=== PATIENT | female | born 1960 | race American Indian/Alaskan Native ===

== ENCOUNTER 2017-09-13 16:41 | Emergency (ER) | payer OTHER ==
[2017-09-13 16:55] VITALS: BMI 31.1
[2017-09-13] MEDS ORDERED: Sodium Chloride 0.9% 1,000 ML IV ONE (17:11)
[2017-09-13 17:44] LABS: BASO # 0.1 K/uL (0.0-0.2); BASO % 0.8 % (0.0-2.0); EOS # 0.5 K/uL (0.0-0.7); EOS % 5.9 % (0.0-4.0); HEMATOCRIT 41.5 % (34.0-47.0); LYMPH # 3.2 K/uL (1.0-4.3); LYMPH % 41.6 % (20.0-40.0); MEAN CELL VOLUME 83.1 fL (81.0-99.0); MEAN CORPUSCULAR HEMOGLOBIN 27.2 pg (27.0-31.0); MEAN CORPUSCULAR HGB CONC 32.7 g/dL (33.0-37.0); MEAN PLATELET VOLUME 8.8 fL (7.2-11.7); MONO # 0.6 K/uL (0.0-0.8); MONO % 7.7 % (0.0-10.0); NRBC % 0.1 % (0.0-2.0); RED CELL DISTRIBUTION WIDTH 14.7 % (11.5-14.5); WHITE BLOOD COUNT 7.7 K/uL (4.8-10.8)
[2017-09-13 17:47] LABS: RBC URINE 3 /hpf (0-3); URINE BACTERIA RARE (<OCC); URINE BILIRUBIN NEGATIVE (NEGATIVE); URINE BLOOD 1+ (NEGATIVE); URINE COLOR Yellow (YELLOW); URINE GLUCOSE (UA) NORMAL (Normal); URINE KETONE NEGATIVE (NEGATIVE); URINE LEUKOCYTE ESTERASE NEG Leu/uL (Negative); URINE PROTEIN NEGATIVE (NEGATIVE); URINE UROBILINOGEN NORMAL mg/dL (0.2-1.0); WBC URINE 1 /hpf (0-5)
[2017-09-13 18:01] LABS: CHLORIDE 103 mmol/L (98-107); POTASSIUM 3.8 mmol/L (3.6-5.2); SODIUM 138 mmol/L (132-148)
[2017-09-13 18:03] LABS: AST/SGOT 24 U/L (14-36); BILIRUBIN,TOTAL 0.4 mg/dL (0.2-1.3); CARBON DIOXIDE 22 mmol/L (22-30); GFR AFRICAN-AMERICAN > 60
[2017-09-13 18:04] LABS: ALB/GLOB RATIO 1.2 (1.0-2.1); ALKALINE PHOSPHATASE 78 U/L (38-126); ALT/SGPT 32 U/L (9-52); BLOOD UREA NITROGEN 17 mg/dL (7-17); CALCIUM 8.6 mg/dl (8.6-10.4); GLUCOSE,RANDOM 112 mg/dL (65-105); TOTAL PROTEIN 8.2 g/dL (6.3-8.3)
[2017-09-13] MEDS ORDERED: Sodium Chloride 0.9% 1,000 ML ONE (18:06)
--- NOTE | 2017-09-13 18:19 | C.PDOC ---
History Of Present Illness 57 y/o female, with PMHx of HTN and diabetes (taking Metformin), presents to ED for evaluation of Chest Tightness, urinary frequency, and elevated blood sugar level. Also complaints of right shoulder pain that radiates to right side of chest for the past 5 days. No fall or injury. Otherwise, denies change in sensation, shortness of breath, cough, dysuria, hematuria, or fever. PMD: Dr. Ascencio Time Seen by Provider: 09/13/17 17:03 Chief Complaint (Nursing): Female Genitourinary History Per: Patient History/Exam Limitations: no limitations Onset/Duration Of Symptoms: Days Current Symptoms Are (Timing): Still Present Severity: Mild Quality Of Discomfort: Pressure, "Pain" Associated Symptoms: Urinary Symptoms Alleviating Factors: None Recent travel outside of the [place]: No Additional History Per: Patient Abnormal Vaginal Bleeding: No Past Medical History Reviewed: Historical Data, Nursing Documentation, Vital Signs Vital Signs: Last Vital Signs Temp 98.1 F 09/13/17 16:55 Pulse 103 H 09/13/17 16:55 Resp 18 09/13/17 16:55 BP 168/86 H 09/13/17 16:55 Pulse Ox 100 09/13/17 18:36 - Medical History PMH: Diabetes, HTN Denies: Chronic Kidney Disease Surgical History: No Surg Hx Family History: States: Unknown Family Hx - Social History Hx Alcohol Use: No Hx Substance Use: No - Immunization History Hx Tetanus Toxoid Vaccination: No Hx Influenza Vaccination: No Hx Pneumococcal Vaccination: No Review Of Systems Except As Marked, All Systems Reviewed And Found Negative. Constitutional: Negative for: Fever, Chills Cardiovascular: Positive for: Chest Pain. Negative for: Palpitations, Light Headedness Respiratory: Negative for: Cough, Shortness of Breath Genitourinary: Positive for: Frequency. Negative for: Dysuria, Hematuria, Vaginal Discharge Musculoskeletal: Positive for: Shoulder Pain (right), Leg Pain Skin: Negative for: Rash, Bruising Neurological: Negative for: Weakness, Numbness, Headache, Dizziness Physical Exam - Physical Exam Appears: Non-toxic, No Acute Distress Skin: Normal Color, Warm, Dry Head: Atraumatic, Normacephalic Eye(s): bilateral: Normal Inspection Oral Mucosa: Moist Neck: Normal ROM, Supple Chest: Symmetrical Cardiovascular: Rhythm Regular, No Murmur Respiratory: Normal Breath Sounds, No Rales, No Rhonchi, No Wheezing Gastrointestinal/Abdominal: Soft, No Tenderness Extremity: Normal ROM, No Pedal Edema Neurological/Psych: Oriented x3, Normal Speech Gait: Steady ED Course And Treatment - Laboratory Results Result Diagrams: 09/13/17 17:41 09/13/17 17:41 Lab Interpretation: Normal ECG: Interpreted By Me ECG Rhythm: Sinus Rhythm, Nonspecific Changes ECG Interpretation: No Acute Changes Rate From EC O2 Sat by Pulse Oximetry: 100 (RA) Pulse Ox Interpretation: Normal - Radiology CXR: Interpreted by Me CXR Interpretation: Yes: No Acute Disease Progress Note: Blood work, UA, EKG, CXR ordered and reviewed. Patient was given IV fluids. Reassessment Condition: Unchanged - Physician Consult Information Physician Contacted: Charmaine Ibarra Outcome Of Conversation: tele OBS Disposition Discussed With Dr.: Charmaine Ibarra Doctor Will See Patient In The: Hospital - Disposition Disposition: HOSPITALIZED Disposition Time: 18:35 Condition: STABLE - POA Present On Arrival: None - Clinical Impression Clinical Impression: Chest pain - PA / [employer] / Resident Statement MD/DO has reviewed & agrees with the documentation as recorded. - Scribe Statement The provider has reviewed the documentation as recorded by the Scribe Ashley Mullins All medical record entries made by the Liibe were at my direction and personally dictated by me. I have reviewed the chart and agree that the record accurately reflects my personal performance of the history, physical exam, medical decision making, and the department course for this patient. I have also personally directed, reviewed, and agree with the discharge instructions and disposition. Decision To Admit - Pt Status Changed To: Hospital Disposition Of: Observation - . Bed Request Type: Telemetry Admitting Physician: Charmaine Ibarra Patient Diagnosis: Chest pain
--- NOTE | 2017-09-13 23:20 | CP.PCM.HP ---
<Ernesto Dejesus - Last Filed: 09/13/17 23:08> History of Present Illness - History of Present Illness History of Present Illness: Medicine H/P CC: R. Shoulder Pain HPI: Patient is 57F with a PMH of DM and HTN who presents with a 5 day history of intermittent R. shoulder pain associated with chest tightness. ASA makes it better as well as taking deep breaths. The pain is located over the deltoid and radiates to near the corocoid process. Nothing makes the pain worse. Denies radiation. She had a prior episode 2 years ago that was evaluated with a stress test that was negative. Denies Fever, chills, N/V/D, diaphoresis, visual changes , speech changes, confusion, SEN, abdominal pain, rash or blood in urine. Patient complains of constipation, cough that is non productive, chest pain, leg pain in the L. calf described as stiffness. Also complaining of Polyuria/ polydipsia for 1 month. 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 Denies recent travel. ROS: * Const: denies WL * HEENT: Denies * Lungs: none * Heart: thinks she had a previous echo, no previous cath * GI: denies * Renal: denies * : polyuria * Breast: Denies * MSK: - falls, back pain, Rheumatoid arthritis; ambulates independently * Neuro - CVA, seizure, memory changes, weakness, numbness, MS, Alzheimer, Myasthenia gravis * Endo: - thyroid, adrenal; + DM * Skin: denies * Heme: denies easy bruising, anemia, leukemia, transfusion, prior clots * Onc: denies hx of cancer, immune problems * ID: denies history of MRSA, C.diff, HIV PMH: DM, HTN PSH: Csection 17 yrs ago FH: mom HTN/DM, Sister stroke SH: , not , lives with son, denies smoking, drinking, drugs Meds: * amlodipine * lopressor * zestril * prednisone * metformin * benadryl Allergies: KNA FULL CODE Present on Admission - Present on Admission Any Indicators Present on Admission: No Review of Systems - Review of Systems All systems: reviewed and no additional remarkable complaints except (per hpi) Past Patient History - Past Medical History & Family History Past Medical History?: Yes - Past Social History Smoking Status: Never Smoked - CARDIAC Hx Hypertension: Yes - PULMONARY Hx Respiratory Disorders: No - NEUROLOGICAL Hx Neurological Disorder: No - HEENT Hx HEENT Problems: Yes - RENAL Hx Chronic Kidney Disease: No - ENDOCRINE/METABOLIC Hx Endocrine Disorders: Yes Hx Diabetes Mellitus Type 2: Yes - HEMATOLOGICAL/ONCOLOGICAL Hx Blood Disorders: No - INTEGUMENTARY Hx Dermatological Problems: No - MUSCULOSKELETAL/RHEUMATOLOGICAL Hx Musculoskeletal Disorders: No - GASTROINTESTINAL Hx Gastrointestinal Disorders: No - GENITOURINARY/GYNECOLOGICAL Hx Genitourinary Disorders: No - PSYCHIATRIC Hx Substance Use: No - SURGICAL HISTORY Hx Surgeries: Yes Hx Section: Yes - ANESTHESIA Hx Anesthesia: Yes Hx Anesthesia Reactions: No Meds Allergies/Adverse Reactions: Allergies Allergy/AdvReac Type Severity Reaction Status Date / Time No Known Allergies Allergy Verified 09/13/17 16:54 Physical Exam - Constitutional Appears: Well, Non-toxic, No Acute Distress - Head Exam Head Exam: ATRAUMATIC, NORMAL INSPECTION, NORMOCEPHALIC - Eye Exam Eye Exam: EOMI, PERRL - ENT Exam ENT Exam: Mucous Membranes Moist - Neck Exam Neck exam: Positive for: Normal Inspection - Respiratory Exam Respiratory Exam: Chest Wall Tenderness, Clear to Auscultation Bilateral, NORMAL BREATHING PATTERN - Cardiovascular Exam Cardiovascular Exam: REGULAR RHYTHM - GI/Abdominal Exam GI & Abdominal Exam: Normal Bowel Sounds, Soft. absent: Distended, Tenderness - Extremities Exam Additional comments: tenderness over the deltoid/coracoid - Neurological Exam Neurological exam: Alert, CN II-XII Intact, Oriented x3 - Psychiatric Exam Psychiatric exam: Normal Affect, Normal Mood - Skin Skin Exam: Dry, Intact, Normal Color, Warm Results - Vital Signs Recent Vital Signs: Last Vital Signs Temp 98.1 F 09/13/17 16:55 Pulse 103 H 09/13/17 16:55 Resp 18 09/13/17 16:55 BP 168/86 H 09/13/17 16:55 Pulse Ox 100 09/13/17 18:44 - Labs Result Diagrams: 09/13/17 17:41 09/13/17 17:41 Labs: Laboratory Results - last 24 hr 09/13/17 09/13/17 09/13/17 17:22 17:41 17:41 WBC 7.7 D RBC 4.99 Hgb 13.6 Hct 41.5 MCV 83.1 MCH 27.2 MCHC 32.7 L RDW 14.7 H Plt Count 390 MPV 8.8 Neut % (Auto) 44.0 L Lymph % (Auto) 41.6 H [place] % (Auto) 7.7 Eos % (Auto) 5.9 H Baso % (Auto) 0.8 Neut # 3.4 Lymph # 3.2 [place] # 0.6 Eos # 0.5 Baso # 0.1 Sodium Potassium Chloride Carbon Dioxide Anion Gap BUN Creatinine Est GFR ( Amer) Est GFR (Non-Af Amer) POC Glucose (mg/dL) 131 H Random Glucose Calcium Total Bilirubin AST ALT Alkaline Phosphatase Troponin I Total Protein Albumin Globulin Albumin/Globulin Ratio Lipase Urine Color Yellow Urine Clarity Clear Urine pH 7.0 Ur Specific [place] 1.017 Urine Protein Negative Urine Glucose (UA) Normal Urine Ketones Negative Urine Blood 1+ H Urine Nitrate Negative Urine Bilirubin Negative Urine Urobilinogen Normal Ur Leukocyte Esterase Neg Urine WBC (Auto) 1 Urine RBC (Auto) 3 Ur Squamous Epith Cells 2 Urine Bacteria Rare 09/13/17 17:41 WBC RBC Hgb Hct MCV MCH MCHC RDW Plt Count MPV Neut % (Auto) Lymph % (Auto) [place] % (Auto) Eos % (Auto) Baso % (Auto) Neut # Lymph # [place] # Eos # Baso # Sodium 138 Potassium 3.8 Chloride 103 Carbon Dioxide 22 Anion Gap 17 BUN 17 Creatinine 0.8 Est GFR ( Amer) > 60 Est GFR (Non-Af Amer) > 60 POC Glucose (mg/dL) Random Glucose 112 H Calcium 8.6 Total Bilirubin 0.4 AST 24 ALT 32 Alkaline Phosphatase 78 Troponin I < 0.0120 Total Protein 8.2 Albumin 4.5 Globulin 3.7 Albumin/Globulin Ratio 1.2 Lipase 81 Urine Color Urine Clarity Urine pH Ur Specific [place] Urine Protein Urine Glucose (UA) Urine Ketones Urine Blood Urine Nitrate Urine Bilirubin Urine Urobilinogen Ur Leukocyte Esterase Urine WBC (Auto) Urine RBC (Auto) Ur Squamous Epith Cells Urine Bacteria Assessment & Plan - Assessment and Plan (Free Text) Assessment: R. Shoulder Pain * assoc with chest tightness * GARY * negative x1 * F/U * F/U LE Doppler * Lipid Panel * TG 147 * Cholesterol 164 * LDL - F/U * HDL 68 DM * accuchecks * ISS High * Metformin held * A1C - F/U HTN * Norvasc 10 PO QD * Zestril 10 PO QD * Lopressor 50 PO BID PPx * SCD * Ambulate * Zofran * Pepcid * Colace <Zeyad Obregon - Last Filed: 09/14/17 06:24> Results - Vital Signs Recent Vital Signs: Last Vital Signs Temp 98.1 F 09/13/17 16:55 Pulse 65 09/14/17 05:01 Resp 13 09/14/17 05:01 BP 127/72 09/14/17 05:01 Pulse Ox 97 09/14/17 05:01 - Labs Result Diagrams: 09/14/17 04:53 09/14/17 04:19 Labs: Laboratory Results - last 24 hr 09/13/17 09/13/17 09/13/17 17:22 17:41 17:41 WBC 7.7 D RBC 4.99 Hgb 13.6 Hct 41.5 MCV 83.1 MCH 27.2 MCHC 32.7 L RDW 14.7 H Plt Count 390 MPV 8.8 Neut % (Auto) 44.0 L Lymph % (Auto) 41.6 H [place] % (Auto) 7.7 Eos % (Auto) 5.9 H Baso % (Auto) 0.8 Neut # 3.4 Lymph # 3.2 [place] # 0.6 Eos # 0.5 Baso # 0.1 Sodium Potassium Chloride Carbon Dioxide Anion Gap BUN Creatinine Est GFR ( Amer) Est GFR (Non-Af Amer) POC Glucose (mg/dL) 131 H Random Glucose Calcium Total Bilirubin AST ALT Alkaline Phosphatase Total Creatine Kinase CK-MB (Mass) Troponin I Troponin I, Quant Total Protein Albumin Globulin Albumin/Globulin Ratio Triglycerides Cholesterol LDL Cholesterol Direct HDL Cholesterol Lipase Urine Color Yellow Urine Clarity Clear Urine pH 7.0 Ur Specific [place] 1.017 Urine Protein Negative Urine Glucose (UA) Normal Urine Ketones Negative Urine Blood 1+ H Urine Nitrate Negative Urine Bilirubin Negative Urine Urobilinogen Normal Ur Leukocyte Esterase Neg Urine WBC (Auto) 1 Urine RBC (Auto) 3 Ur Squamous Epith Cells 2 Urine Bacteria Rare Influenza Typ A,B (EIA) 09/13/17 09/13/17 09/13/17 17:41 23:06 23:08 WBC RBC Hgb Hct MCV MCH MCHC RDW Plt Count MPV Neut % (Auto) Lymph % (Auto) [place] % (Auto) Eos % (Auto) Baso % (Auto) Neut # Lymph # [place] # Eos # Baso # Sodium 138 Potassium 3.8 Chloride 103 Carbon Dioxide 22 Anion Gap 17 BUN 17 Creatinine 0.8 Est GFR ( Amer) > 60 Est GFR (Non-Af Amer) > 60 POC Glucose (mg/dL) Random Glucose 112 H Calcium 8.6 Total Bilirubin 0.4 AST 24 ALT 32 Alkaline Phosphatase 78 Total Creatine Kinase 170 H CK-MB (Mass) 2.14 Troponin I < 0.0120 Troponin I, Quant < 0.0120 Total Protein 8.2 Albumin 4.5 Globulin 3.7 Albumin/Globulin Ratio 1.2 Triglycerides 147 Cholesterol 164 LDL Cholesterol Direct 42 HDL Cholesterol 68 Lipase 81 Urine Color Urine Clarity Urine pH Ur Specific [place] Urine Protein Urine Glucose (UA) Urine Ketones Urine Blood Urine Nitrate Urine Bilirubin Urine Urobilinogen Ur Leukocyte Esterase Urine WBC (Auto) Urine RBC (Auto) Ur Squamous Epith Cells Urine Bacteria Influenza Typ A,B (EIA) Negative for flu a/b 09/14/17 09/14/17 09/14/17 01:04 04:19 04:53 WBC 6.2 RBC 4.84 Hgb 13.0 Hct 39.7 MCV 82.0 MCH 26.8 L MCHC 32.7 L RDW 14.7 H Plt Count 358 MPV 8.9 Neut % (Auto) 33.9 L Lymph % (Auto) 50.5 H [place] % (Auto) 9.2 Eos % (Auto) 5.9 H Baso % (Auto) 0.5 Neut # 2.1 Lymph # 3.1 [place] # 0.6 Eos # 0.4 Baso # 0.0 Sodium 135 Potassium 3.4 L Chloride 103 Carbon Dioxide 22 Anion Gap 13 BUN 16 Creatinine 0.7 Est GFR ( Amer) > 60 Est GFR (Non-Af Amer) > 60 POC Glucose (mg/dL) 161 H Random Glucose 80 Calcium 7.9 L Total Bilirubin 0.6 AST 20 ALT 24 Alkaline Phosphatase 78 Total Creatine Kinase 133 CK-MB (Mass) 1.65 Troponin I Troponin I, Quant < 0.0120 Total Protein 6.5 Albumin 4.1 Globulin 2.4 Albumin/Globulin Ratio 1.7 Triglycerides Cholesterol LDL Cholesterol Direct HDL Cholesterol Lipase Urine Color Urine Clarity Urine pH Ur Specific [place] Urine Protein Urine Glucose (UA) Urine Ketones Urine Blood Urine Nitrate Urine Bilirubin Urine Urobilinogen Ur Leukocyte Esterase Urine WBC (Auto) Urine RBC (Auto) Ur Squamous Epith Cells Urine Bacteria Influenza Typ A,B (EIA) Assessment & Plan - Date & Time Date: 09/14/17 (I have seen and examined the patient. I agree with the findings and plan of care as documented by Dr. Dejesus. Patient with chest pain. History of diabetes. Aspirin and Statin. ROMIx3 with EKG. Observe on tele. Accuchecks and NISS. Monitor for acute changes.) Time: 06:22 Attending/Attestation - Attestation I have personally seen and examined this patient.: Yes I have fully participated in the care of the patient.: Yes I have reviewed all pertinent clinical information: Yes
[2017-09-13 23:21] LABS: CHOLESTEROL 164 mg/dL (0-199)
[2017-09-14 04:32] LABS: CHLORIDE 103 mmol/L (98-107); POTASSIUM 3.4 mmol/L (3.6-5.2); SODIUM 135 mmol/L (132-148)
[2017-09-14 04:34] LABS: GFR AFRICAN-AMERICAN > 60
[2017-09-14 04:35] LABS: ALB/GLOB RATIO 1.7 (1.0-2.1); ALKALINE PHOSPHATASE 78 U/L (38-126); ALT/SGPT 24 U/L (9-52); AST/SGOT 20 U/L (14-36); BILIRUBIN,TOTAL 0.6 mg/dL (0.2-1.3); BLOOD UREA NITROGEN 16 mg/dL (7-17); CALCIUM 7.9 mg/dl (8.6-10.4); CARBON DIOXIDE 22 mmol/L (22-30); GLUCOSE,RANDOM 80 mg/dL (65-105); TOTAL PROTEIN 6.5 g/dL (6.3-8.3)
[2017-09-14 04:55] LABS: BASO % 0.5 % (0.0-2.0); EOS # 0.4 K/uL (0.0-0.7); EOS % 5.9 % (0.0-4.0); HEMATOCRIT 39.7 % (34.0-47.0); LYMPH # 3.1 K/uL (1.0-4.3); LYMPH % 50.5 % (20.0-40.0); MEAN CORPUSCULAR HEMOGLOBIN 26.8 pg (27.0-31.0); MEAN CORPUSCULAR HGB CONC 32.7 g/dL (33.0-37.0); MEAN PLATELET VOLUME 8.9 fL (7.2-11.7); MONO # 0.6 K/uL (0.0-0.8); MONO % 9.2 % (0.0-10.0); RED CELL DISTRIBUTION WIDTH 14.7 % (11.5-14.5); WHITE BLOOD COUNT 6.2 K/uL (4.8-10.8)
[2017-09-14] MEDS ORDERED: (Novolin R) Insulin Human Regular 100 units/ml vial SC SCH (07:30)
--- NOTE | 2017-09-14 08:08 | RAD ---
Chest x-ray two views History: Shortness of breath. Comparison: 12/23/2016 Findings: No focal infiltrate or effusion. Right hilar prominence. Heart size within normal limits. Degenerative changes in the spine. Impression: No focal infiltrate or effusion.
[2017-09-14 08:51] VITALS: RESP 18
[2017-09-14] MEDS ORDERED: Potassium Chloride 20 mEq ER Tab PO ONE ×2 (10:00→10:34)
[2017-09-14] MEDS ORDERED: Pneumoc 13 Val Conjugate Vaccine Inj IM ONE (11:05)
[2017-09-14] MEDS ORDERED: Influenza Vaccine 60 mcg/0.5 mL SYR (4YR UP) IM ONE (11:05)
[2017-09-14 11:54] VITALS: BP 110/73; PULSE 75; TEMP 98.5; O2SAT 97
--- NOTE | 2017-09-14 12:28 | CP.PCM.DIS ---
Provider - Provider Primary care physician: [facility] Time Spent in preparation of Discharge (in minutes): 25 Diagnosis - Discharge Diagnosis (1) Chest pain Status: Resolved Comment: GARY X3: negative. EKG: NSR (09/03). EKG: NSR with sinus arrhytmia ( 09/04). Aspirin 81mg PO daily. Lopressor 50mg PO BID. Lisinopril 10mg PO daily. Held statin given hx of diabetes; Lipid panel: within normal limits. Patient goes to [facility], recommended to follow-up for outpatient stress test. (2) Hypokalemia Status: Acute Comment: replete (3) History of diabetes mellitus Status: Acute Comment: 01/20/17 Hgba1c: 6.5. Educated dietary and lifestyle modifications. Sugars: 130-160s. Patient does not take her sugars daily at home and taking in too much fruit per meal per discussion. Aspirin 81mg PO daily prophylactic. Lisinopril 10mg Po daily for renoprotection. Patient provided Glucometer, test strips, lancets upon discharge. Instructed to take sugars 4 x day (3 times prior meals, once before going to bed) (4) History of hypertension Status: Chronic Comment: Lopressor 50mg PO BID. Lisinopril 10mg PO daily. Norvasc 10mg PO daily. Blood pressure controlled (5) Flu vaccine need Status: Acute Comment: Patient requested and received flu vaccine prior to discharge (6) AC (acromioclavicular) arthritis Status: Chronic Comment: tenderness over AC joint. Patient is on Motring 400mg PO Q 6 PRN pain Hospital Course - Lab Results Lab Results: Most Recent Lab Values WBC 6.2 K/uL (4.8-10.8) 09/14/17 04:53 RBC 4.84 Mil/uL (3.80-5.20) 09/14/17 04:53 Hgb 13.0 g/dL (11.0-16.0) 09/14/17 04:53 Hct 39.7 % (34.0-47.0) 09/14/17 04:53 MCV 82.0 fL (81.0-99.0) 09/14/17 04:53 MCH 26.8 pg (27.0-31.0) L 09/14/17 04:53 MCHC 32.7 g/dL (33.0-37.0) L 09/14/17 04:53 RDW 14.7 % (11.5-14.5) H 09/14/17 04:53 Plt Count 358 K/uL (130-400) 09/14/17 04:53 MPV 8.9 fL (7.2-11.7) 09/14/17 04:53 Neut % (Auto) 33.9 % (50.0-75.0) L 09/14/17 04:53 Lymph % (Auto) 50.5 % (20.0-40.0) H 09/14/17 04:53 [place] % (Auto) 9.2 % (0.0-10.0) 09/14/17 04:53 Eos % (Auto) 5.9 % (0.0-4.0) H 09/14/17 04:53 Baso % (Auto) 0.5 % (0.0-2.0) 09/14/17 04:53 Neut # 2.1 K/uL (1.8-7.0) 09/14/17 04:53 Lymph # 3.1 K/uL (1.0-4.3) 09/14/17 04:53 [place] # 0.6 K/uL (0.0-0.8) 09/14/17 04:53 Eos # 0.4 K/uL (0.0-0.7) 09/14/17 04:53 Baso # 0.0 K/uL (0.0-0.2) 09/14/17 04:53 Sodium 135 mmol/L (132-148) 09/14/17 04:19 Potassium 3.4 mmol/L (3.6-5.2) L 09/14/17 04:19 Chloride 103 mmol/L (98-107) 09/14/17 04:19 Carbon Dioxide 22 mmol/L (22-30) 09/14/17 04:19 Anion Gap 13 (10-20) 09/14/17 04:19 BUN 16 mg/dL (7-17) 09/14/17 04:19 Creatinine 0.7 mg/dL (0.7-1.2) 09/14/17 04:19 Est GFR ( Amer) > 60 09/14/17 04:19 Est GFR (Non-Af Amer) > 60 09/14/17 04:19 POC Glucose (mg/dL) 133 mg/dL (65-110) H 09/14/17 09:00 Random Glucose 80 mg/dL (65-105) 09/14/17 04:19 Calcium 7.9 mg/dl (8.6-10.4) L 09/14/17 04:19 Total Bilirubin 0.6 mg/dL (0.2-1.3) 09/14/17 04:19 AST 20 U/L (14-36) 09/14/17 04:19 ALT 24 U/L (9-52) 09/14/17 04:19 Alkaline Phosphatase 78 U/L (38-126) 09/14/17 04:19 Total Creatine Kinase 133 U/L (30-135) 09/14/17 04:19 CK-MB (Mass) 1.65 ng/mL (0.0-3.38) 09/14/17 04:19 Troponin I < 0.0120 ng/mL (0.00-0.120) 09/13/17 17:41 Troponin I, Quant < 0.0120 ng/mL (0.00-0.120) 09/14/17 04:19 Total Protein 6.5 g/dL (6.3-8.3) 09/14/17 04:19 Albumin 4.1 g/dL (3.5-5.0) 09/14/17 04:19 Globulin 2.4 gm/dL (2.2-3.9) 09/14/17 04:19 Albumin/Globulin Ratio 1.7 (1.0-2.1) 09/14/17 04:19 Triglycerides 147 mg/dL (0-149) 09/13/17 23:06 Cholesterol 164 mg/dL (0-199) 09/13/17 23:06 LDL Cholesterol Direct 42 mg/dL (0-129) 09/13/17 23:06 HDL Cholesterol 68 mg/dL (30-70) 09/13/17 23:06 Lipase 81 U/L (23-300) 09/13/17 17:41 Urine Color Yellow (YELLOW) 09/13/17 17:41 Urine Clarity Clear (Clear) 09/13/17 17:41 Urine pH 7.0 (5.0-8.0) 09/13/17 17:41 Ur Specific [place] 1.017 (1.003-1.030) 09/13/17 17:41 Urine Protein Negative mg/dL (NEGATIVE) 09/13/17 17:41 Urine Glucose (UA) Normal mg/dL (Normal) 09/13/17 17:41 Urine Ketones Negative mg/dL (NEGATIVE) 09/13/17 17:41 Urine Blood 1+ (NEGATIVE) H 09/13/17 17:41 Urine Nitrate Negative (NEGATIVE) 09/13/17 17:41 Urine Bilirubin Negative (NEGATIVE) 09/13/17 17:41 Urine Urobilinogen Normal mg/dL (0.2-1.0) 09/13/17 17:41 Ur Leukocyte Esterase Neg Maci/uL (Negative) 09/13/17 17:41 Urine WBC (Auto) 1 /hpf (0-5) 09/13/17 17:41 Urine RBC (Auto) 3 /hpf (0-3) 09/13/17 17:41 Ur Squamous Epith Cells 2 /hpf (0-5) 09/13/17 17:41 Urine Bacteria Rare (<OCC) 09/13/17 17:41 Influenza Typ A,B (EIA) Negative for flu a/b (NEGATIVE) 09/13/17 23:08 - Hospital Course Hospital Course: Per H&P, "CC: R. Shoulder Pain HPI: Patient is 57F with a PMH of DM and HTN who presents with a 5 day history of intermittent R. shoulder pain associated with chest tightness. ASA makes it better as well as taking deep breaths. The pain is located over the deltoid and radiates to near the corocoid process. Nothing makes the pain worse. Denies radiation. She had a prior episode 2 years ago that was evaluated with a stress test that was negative. Denies Fever, chills, N/V/D, diaphoresis, visual changes , speech changes, confusion, SEN, abdominal pain, rash or blood in urine. Patient complains of constipation, cough that is non productive, chest pain, leg pain in the L. calf described as stiffness. Also complaining of Polyuria/ polydipsia for 1 month. 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 Denies recent travel. ROS: * Const: denies WL * HEENT: Denies * Lungs: none * Heart: thinks she had a previous echo, no previous cath * GI: denies * Renal: denies * : polyuria * Breast: Denies * MSK: - falls, back pain, Rheumatoid arthritis; ambulates independently * Neuro - CVA, seizure, memory changes, weakness, numbness, MS, Alzheimer, Myasthenia gravis * Endo: - thyroid, adrenal; + DM * Skin: denies * Heme: denies easy bruising, anemia, leukemia, transfusion, prior clots * Onc: denies hx of cancer, immune problems * ID: denies history of MRSA, C.diff, HIV PMH: DM, HTN PSH: Csection 17 yrs ago FH: mom HTN/DM, Sister stroke SH: , not , lives with son, denies smoking, drinking, drugs Meds: * amlodipine * lopressor * zestril * prednisone * metformin * benadryl Allergies: KNA FULL CODE" Patient seen in the emergency room awaiting telemetry bed. Patient seen at bedside. Chest pain has resolved. GARY X3 negative. EKG and repeat EKG are NSR. Lipid panel; within normal. Patient denies acute compliants. Patient is medically stable for discharge. Patient reports she has had a stress test normal in the past; unable to review it. Patient request for flu vaccine prior to discharge. Patient recommended to follow-up in the clinic ([phone]) will need cardiology for screening for outpatient stress test in light of diabetes and hypertension and for diabetes management. Instructed to create blood sugar diary and take sugars pre-meals and once before dinner. New Prescriptions: 1) Glucometer 2) Test strips 3) Lancets Old prescription to resume Norvasc 5mg PO daily Lopressor 50mg PO BID Lisinopril 10mg PO daily Aspirin 81mg PO daily Patient is no longer taking Benadryl and Predisone. This is a summary of patient's hospitalization. Please see EMR for full details. - Date & Time of H&P Date of H&P: 09/13/17 Time of H&P: 23:08 Discharge Exam - Head Exam Head Exam: ATRAUMATIC, NORMAL INSPECTION, NORMOCEPHALIC - Eye Exam Eye Exam: EOMI - ENT Exam ENT Exam: Mucous Membranes Moist - Respiratory Exam Respiratory Exam: Clear to PA & Lateral, NORMAL BREATHING PATTERN. absent: Rales, Rhonchi - Cardiovascular Exam Cardiovascular Exam: REGULAR RHYTHM, +S1, +S2 - GI/Abdominal Exam GI & Abdominal Exam: Normal Bowel Sounds, Soft. absent: Distended, Firm, Guarding, Rebound, Rigid, Tenderness - Extremities Exam Extremities exam: pedal pulses present Additional comments: point tenderness over AC joint right upper extremity Passive range of motion intact bilateral upper and lower extremities No edema appreciated upon lower extremities - Neurological Exam Neurological exam: Alert, Oriented x3 - Psychiatric Exam Psychiatric exam: Normal Affect, Normal Mood - Skin Skin Exam: Dry, Intact, Normal Color, Warm Discharge Plan - Follow Up Plan Condition: STABLE Disposition: HOSPITALIZED Instructions: Angina (GEN), Chest Pain (DC), Diabetes Mellitus Type 2 in Adults (DC), Diabetes Mellitus Type 2 in Adults (GEN) Additional Instructions: Patient to be discharged home per Dr. Ayers. Patient will return to the ED if her symptoms of chest pain or discomfort return worsen. Patient will all her previous home medication of Lopressor, Zestril, and Norvasc as previously prescribed. She will also continue with her Metformin twice a day. She will need to take Aspirin 81mg everyday which she can buy over the counter. Patient will also follow up at [facility] for post hospital admission care, primary care, and cardiology referral. Patient needs to take her BS twice a day and keep a log of them and take them with her to her next appointment at [facility]. She also needs referral for yearly diabetic eye exam and foot exam. She also needs annual sustainability engineer exam and mammogram as well. Referrals: [facility] at [facility] [Outside]
--- NOTE | 2017-09-15 10:33 | CARD ---
APPROVED REPORT EKG Measurement Heart [id number] MS 140P41 [id number] <Conclusion> Normal sinus rhythm Nonspecific T wave abnormality Abnormal ECG
--- NOTE | 2017-09-15 22:24 | CARD ---
APPROVED REPORT EKG Measurement Heart [id number] [place] 130P21 [id number] <Conclusion> Normal sinus rhythm with sinus arrhythmia Normal ECG
== END 2017-09-14 11:50 | disposition home or self-care (01) ==
LOC: C.ER 16:41 → UNDOADMOB 18:29 → C.9E 18:29 → C.ER 09-14 11:50
DX: R07.9 Chest pain, unspecified (principal); E11.9 Type 2 diabetes mellitus without complications; I10 Essential (primary) hypertension; Z79.84 Long term (current) use of oral hypoglycemic drugs; Z23 Encounter for immunization
CPT/HCPCS: 71020; 80053; 80061; 81001; 82948; 83036; 83690; 84484; 85025; 87086; 87804; 90471; 90674; 93005; 96360; 99285; J7040

== ENCOUNTER 2018-01-03 22:36 | Emergency (ER) | payer SELFPAY ==
[2018-01-03 22:36] VITALS: BMI 31.1
[2018-01-03 22:57] VITALS: BP 157/83; PULSE 79; RESP 18; TEMP 97.9; O2SAT 99
--- NOTE | 2018-01-03 23:22 | C.PDOC ---
History Of Present Illness 57 year old female with a Hx of HTN and diabetes presents to the ER after noticing her blood pressure was elevated at home. Patient reports she ran out of her HTN medication and has been unable to get a refill. Here in the ER patient's blood pressure is within normal limits. Denies chest pain, SOB, numbness, weakness, vision changes, nausea, or vomiting. Time Seen by Provider: 01/03/18 22:59 Chief Complaint (Nursing): High Blood Pressure History Per: Patient History/Exam Limitations: no limitations Onset/Duration Of Symptoms: Hrs Current Symptoms Are (Timing): Still Present Associated Symptoms: denies: Chest Pain, Dyspnea, Dizziness, Blurred Vision, Focal Weakness, Headache Quality Of Symptoms: Asymptomatic Exacerbating Factor(s): Pos: Recently Missed Doses Of Medication Recent travel outside of the [place]: No Past Medical History Reviewed: Historical Data, Nursing Documentation, Vital Signs Vital Signs: Last Vital Signs Temp 97.9 F 01/03/18 22:57 Pulse 79 01/03/18 22:57 Resp 18 01/03/18 22:57 BP 157/83 H 01/03/18 22:57 Pulse Ox 99 01/05/18 05:26 - Medical History PMH: Diabetes, HTN Family History: States: Unknown Family Hx - Social History Hx Alcohol Use: No Hx Substance Use: No - Immunization History Hx Tetanus Toxoid Vaccination: No Hx Influenza Vaccination: No Hx Pneumococcal Vaccination: No Review Of Systems Constitutional: Negative for: Fever, Chills Cardiovascular: Negative for: Chest Pain, Palpitations Respiratory: Negative for: Shortness of Breath Gastrointestinal: Negative for: Nausea, Vomiting Physical Exam - Physical Exam Appears: Non-toxic, No Acute Distress Skin: Normal Color, Warm, Dry, No Rash Head: Atraumatic, Normacephalic Eye(s): bilateral: Normal Inspection, PERRL, EOMI Oral Mucosa: Moist Neck: Normal ROM, Supple Chest: Symmetrical, No Tenderness Cardiovascular: Rhythm Regular, No Friction Rub, No Murmur Respiratory: Normal Breath Sounds, No Rales, No Rhonchi, No Wheezing Gastrointestinal/Abdominal: Soft, No Tenderness Back: Normal Inspection, No CVA Tenderness Extremity: Normal ROM, No Swelling Neurological/Psych: Oriented x3, Normal Speech, Normal Motor Gait: Steady ED Course And Treatment O2 Sat by Pulse Oximetry: 99 (Room air) Pulse Ox Interpretation: Normal Medical Decision Making Medical Decision Making: Pt states that she received Rx today and does not need a refill. Patient is resting comfortably in the ER in no acute distress, vitals are stable , blood pressure is within normal limits. Patient reassured and advised to follow up with PMD or return if symptoms worsen. Patient understands and agrees with plan. Disposition - Disposition Referrals: Mariola Ascencio MD [Staff Provider] - Disposition: HOME/ ROUTINE Disposition Time: 23:21 Condition: GOOD Additional Instructions: take medications as prescribed. Follow up with the medical doctor for repeat BP within 1-2 days without fail. Return if worsened. Instructions: High Blood Pressure in Adults Forms: [facility] [facility] (Malay) - Clinical Impression Clinical Impression: Abnormal blood pressure, History of hypertension - PA / SENIOR INFORMATION SYSTEMS ARCHITECT / Resident Statement MD/DO has reviewed & agrees with the documentation as recorded. - Scribe Statement The provider has reviewed the documentation as recorded by the Scribe Ottoniel Covarrubias All medical record entries made by the Scribe were at my direction and personally dictated by me. I have reviewed the chart and agree that the record accurately reflects my personal performance of the history, physical exam, medical decision making, and the department course for this patient. I have also personally directed, reviewed, and agree with the discharge instructions and disposition.
== END 2018-01-03 23:29 | disposition home or self-care (01) ==
LOC: C.ER 22:36
DX: I10 Essential (primary) hypertension (principal)

== ENCOUNTER 2018-04-10 20:30 | Emergency (ER) | payer OTHER ==
[2018-04-10 20:30] VITALS: BMI 31.8
[2018-04-10 20:43] VITALS: O2SAT 97
[2018-04-10 21:17] LABS: BASO # 0.1 K/uL (0.0-0.2); EOS # 0.1 K/uL (0.0-0.7); EOS % 2.2 % (0.0-4.0); HEMOGLOBIN 13.5 g/dL (11.0-16.0); LYMPH # 2.1 K/uL (1.0-4.3); LYMPH % 32.4 % (20.0-40.0); MEAN CELL VOLUME 82.7 fL (81.0-99.0); MEAN CORPUSCULAR HEMOGLOBIN 27.6 pg (27.0-31.0); MEAN CORPUSCULAR HGB CONC 33.3 g/dL (33.0-37.0); MEAN PLATELET VOLUME 8.7 fL (7.2-11.7); MONO # 0.5 K/uL (0.0-0.8); MONO % 7.2 % (0.0-10.0); NEUT # 3.8 K/uL (1.8-7.0); NEUT % 57.2 % (50.0-75.0); NRBC % 0.1 % (0.0-2.0); RBC 4.91 Mil/uL (3.80-5.20); RED CELL DISTRIBUTION WIDTH 15.3 % (11.5-14.5); WHITE BLOOD COUNT 6.6 K/uL (4.8-10.8)
[2018-04-10 21:21] LABS: URINE BACTERIA RARE (<OCC); URINE BILIRUBIN NEGATIVE (NEGATIVE); URINE BLOOD NEGATIVE (NEGATIVE); URINE CLARITY Clear (Clear); URINE COLOR Colorless (YELLOW); URINE GLUCOSE (UA) 1+ mg/dL (Normal); URINE LEUKOCYTE ESTERASE NEG Leu/uL (Negative); URINE PROTEIN NEGATIVE (NEGATIVE); URINE UROBILINOGEN NORMAL mg/dL (0.2-1.0)
[2018-04-10 21:33] LABS: ALB/GLOB RATIO 1.2 (1.0-2.1); ALBUMIN 4.4 g/dL (3.5-5.0); CALCIUM 9.5 mg/dl (8.6-10.4); GFR AFRICAN-AMERICAN > 60; GFR NON-AFRICAN AMERICAN > 60
[2018-04-10 21:35] LABS: ALT/SGPT 24 U/L (9-52); AST/SGOT 31 U/L (14-36); BLOOD UREA NITROGEN 19 mg/dL (7-17)
[2018-04-10] MEDS ORDERED: Sodium Chloride 0.9% 1,000 ML IV STA (21:36)
[2018-04-10] MEDS ORDERED: Sodium Chloride 0.9% 1,000 ML ONE (22:09)
--- NOTE | 2018-04-10 22:12 | CT ---
EXAM: CT Head Without Intravenous Contrast CLINICAL HISTORY: 57 years old, female; Signs and symptoms; Dizziness; Additional info: Dizziness, headache TECHNIQUE: Axial computed tomography images of the head/brain without intravenous contrast. All CT scans at this facility use one or more dose reduction techniques, viz.: automated exposure control; ma/kV adjustment per patient size (including targeted exams where dose is matched to indication; i.e. head); or iterative reconstruction technique. COMPARISON: No relevant prior studies available. FINDINGS: Brain: No hemorrhage. No significant white matter disease. No edema. Ventricles: No hydrocephalus. Bones: Skull is intact. Sinuses: No acute sinusitis. Mastoid air cells: No mastoid effusion. IMPRESSION: No CT evidence of acute intracranial abnormality.
--- NOTE | 2018-04-10 22:38 | C.PDOC ---
Time Seen by Provider: 04/10/18 20:51 Chief Complaint (Nursing): Dizziness/Lightheaded History Per: Patient Onset/Duration Of Symptoms: Days, Intermittent Episodes Current Symptoms Are (Timing): Still Present Associated Symptoms Preceding Syncopal Episode: Vertigo Worse With Change In Head Position Fall Associated With With Symptoms: No Severity: Moderate Additional History Per: Prior Records - Symptoms Of CVA Recent Head Trauma: No Past Medical History Reviewed: Historical Data, Nursing Documentation, Vital Signs Vital Signs: Last Vital Signs Temp 97.9 F 04/10/18 20:40 Pulse 115 H 04/10/18 20:40 Resp 18 04/10/18 20:40 BP 172/92 H 04/10/18 20:40 Pulse Ox 97 04/10/18 20:40 - Medical History PMH: Diabetes, HTN Family History: States: Unknown Family Hx - Social History Hx Alcohol Use: No Hx Substance Use: No - Immunization History Hx Tetanus Toxoid Vaccination: No Hx Influenza Vaccination: No Hx Pneumococcal Vaccination: No Review Of Systems Except As Marked, All Systems Reviewed And Found Negative. Constitutional: Negative for: Fever Eyes: Negative for: Vision Change ENT: Positive for: Ear Pain (right), Nose Congestion (sneezing). Negative for: Ear Discharge Cardiovascular: Negative for: Chest Pain Respiratory: Positive for: Cough. Negative for: Shortness of Breath Gastrointestinal: Negative for: Vomiting, Abdominal Pain Skin: Negative for: Rash Neurological: Positive for: Headache, Dizziness. Negative for: Weakness, Numbness, Change in Speech, Confusion, Seizures, Altered Mental Status Physical Exam - Physical Exam Appears: Non-toxic, No Acute Distress Skin: Normal Color, Warm, Dry, No Rash Head: Atraumatic, Normacephalic Eye(s): bilateral: Normal Inspection, PERRL, EOMI Ear(s): Bilateral: Normal Neck: Normal ROM, Supple Cardiovascular: Rhythm Regular Respiratory: Normal Breath Sounds, No Accessory Muscle Use Gastrointestinal/Abdominal: Soft, No Tenderness Back: No CVA Tenderness Extremity: Normal ROM Neurological/Psych: Oriented x3, Normal Speech, Normal Cognition, Normal Cranial Nerves, No Cerebellar Signs, Normal Motor, Normal Sensation ED Course And Treatment - Laboratory Results Result Diagrams: 04/10/18 21:13 04/10/18 21:13 Lab Interpretation: No Acute Changes ECG: Interpreted By Me, Viewed By Me ECG Rhythm: Sinus Rhythm ECG Interpretation: No Acute Changes Rate From EC O2 Sat by Pulse Oximetry: 97 Pulse Ox Interpretation: Normal - Radiology CXR: Interpreted by Me, Viewed By Me CXR Interpretation: Yes: No Acute Disease - CT Scan/US CT head Other Rad Studies (CT/US): Read By Radiologist, Radiology Report Reviewed CT/US Interpretation: IMPRESSION: No CT evidence of acute intracranial abnormality. Progress - Interventions Interventions:: Observation, Intravenous fluid - Medications Administered Oral: Other (Meclizine) - Data Reviewed Data Reviewed: Lab, Diagnostic imaging, EKG, Old records - Patient Status Patient status: Mostly improved - Continuity of Care Discussed patient case with:: Patient, ED Nurse - Patient Plan Patient Plan: Discharge, F/U with PCP, Continue present meds Disposition Counseled Patient/Family Regarding: Studies Performed, Diagnosis, Need For Followup, Rx Given - Disposition Referrals: [facility] [Outside] Taj Watson MD [Staff Provider] - Disposition: HOME/ ROUTINE Disposition Time: 22:38 Condition: STABLE Additional Instructions: Follow up with a Neurologist for further evaluation and treatment. Return to the ER if you develop weakness, numbness, vomiting, worsening of symptoms or if you have any other concerns. Prescriptions: Fluticasone Nasal [Flonase] 2 spr NS DAILY #1 bottle Meclizine [Meclizine*] 25 mg PO Q6 PRN #30 tab PRN Reason: Dizziness Instructions: Vertigo (a Type of Dizziness) (DC) - Clinical Impression Clinical Impression: Dizziness
[2018-04-10 23:12] VITALS: BP 114/68; PULSE 68; RESP 20; TEMP 98
--- NOTE | 2018-04-11 11:21 | RAD ---
PROCEDURE: CHEST RADIOGRAPH, 1 VIEW HISTORY: Dizziness, cough COMPARISON: Chest radiographs 09/13/2017. FINDINGS: LUNGS: No acute pulmonary disease appreciable. PLEURA: No pneumothorax or pleural fluid seen. CARDIOVASCULAR: Normal. OSSEOUS STRUCTURES: No significant abnormalities. VISUALIZED UPPER ABDOMEN: Normal. OTHER FINDINGS: None. IMPRESSION: No interval acute cardiopulmonary disease appreciated.
--- NOTE | 2018-04-14 14:19 | CARD ---
APPROVED REPORT EKG Measurement Heart [id number] CT 150P49 [id number] <Conclusion> Normal sinus rhythm Normal ECG
== END 2018-04-11 00:06 | disposition home or self-care (01) ==
LOC: C.ER 20:30
DX: R42 Dizziness and giddiness (principal)
CPT/HCPCS: 70450; 71045; 80053; 81001; 83735; 84484; 85025; 93005; 99285; J7030

== ENCOUNTER 2018-12-07 09:18 | Emergency (ER) | payer SELFPAY ==
[2018-12-07 09:18] VITALS: BMI 31.8
[2018-12-07 09:41] VITALS: BP 157/93; PULSE 99; RESP 20; TEMP 98; O2SAT 99
--- NOTE | 2018-12-07 09:45 | C.PDOC ---
History Of Present Illness 58 year old female presents to the ED for evaluation of productive cough x 1 week that is worse at night. Patient reports positive pleuritic pain. Denies fever, asthma, smoker. States symptoms have not improved with over the counter prescriptions. PRODUC COUGH X 1 WEEK WORSE @ NIGHT. +PLEURITIC PAIN. NO FEVER, ASTHMA, SMOKER. NO IMPROVE W OTC RX EXAM NARD HEENT NEG LUNGS CTL NO W/R/R +DRY COUGH REMAINDER NEG MDM ADVISED RESP PRECAUTIONS, AVOID CLOSE CONTACT W YOUNG INFANTS Time Seen by Provider: 12/07/18 09:40 Chief Complaint (Nursing): Cough, Cold, Congestion History Per: Patient History/Exam Limitations: no limitations Onset/Duration Of Symptoms: Other (one week ) Current Symptoms Are (Timing): Still Present Associated Symptoms: Cough, Sputum. denies: Fever Additional History Per: Patient Past Medical History Reviewed: Historical Data, Nursing Documentation, Vital Signs Vital Signs: Last Vital Signs Temp 98 F 12/07/18 09:32 Pulse 99 H 12/07/18 09:32 Resp 20 12/07/18 09:32 BP 157/93 H 12/07/18 09:32 Pulse Ox 99 12/07/18 09:32 - Medical History PMH: Diabetes, HTN Denies: Chronic Kidney Disease Surgical History: No Surg Hx Family History: States: Unknown Family Hx - Social History Hx Alcohol Use: No Hx Substance Use: No - Immunization History Hx Tetanus Toxoid Vaccination: No Hx Influenza Vaccination: No Hx Pneumococcal Vaccination: No Review Of Systems Constitutional: Negative for: Fever Respiratory: Positive for: Cough, Sputum Physical Exam - Physical Exam Appears: Non-toxic, Other (no acute respiratory distress ) Skin: Normal Color, Warm, Dry Head: Atraumatic, Normacephalic Eye(s): bilateral: Normal Inspection Ear(s): Bilateral: Normal Nose: Normal, No Discharge Oral Mucosa: Moist Throat: Normal, No Erythema, No Exudate Neck: Supple Chest: Symmetrical, No Deformity, No Tenderness Cardiovascular: Rhythm Regular, No Murmur Respiratory: Normal Breath Sounds, No Rales, No Rhonchi, No Wheezing, Other (clear to auscultation bilaterally, positive dry cough ) Extremity: Normal ROM, Capillary Refill (less than 2 seconds ) Neurological/Psych: Oriented x3, Normal Speech, Normal Cognition ED Course And Treatment O2 Sat by Pulse Oximetry: 99 (on RA) Pulse Ox Interpretation: Normal Medical Decision Making Medical Decision Making: ADVISED RESP PRECAUTIONS, AVOID CLOSE CONTACT W YOUNG INFANTS Disposition Counseled Patient/Family Regarding: Diagnosis, Need For Followup, Rx Given - Disposition Referrals: [facility] [Outside] [facility] [Outside] Disposition: HOME/ ROUTINE Disposition Time: 09:41 Condition: GOOD Prescriptions: Albuterol HFA [Ventolin HFA 90 mcg/actuation (8 g)] 1 puff IH Q4 #1 inhaler Azithromycin 250 mg PO DAILY #6 tab Benzonatate [Tessalon Perles] 200 mg PO TID PRN #15 sgl PRN Reason: Cough Ibuprofen [Motrin] 600 mg PO Q6 #30 tab Instructions: Acute Bronchitis, Adult (DC) Forms: [facility] (Spanish), Work Excuse - Clinical Impression Clinical Impression: Bronchitis - Scribe Statement The provider has reviewed the documentation as recorded by the Scribe (Anne Marie Mullins) Provider Attestation: All medical record entries made by the Scribe were at my direction and personally dictated by me. I have reviewed the chart and agree that the record accurately reflects my personal performance of the history, physical exam, medical decision making, and the department course for this patient. I have also personally directed, reviewed, and agree with the discharge instructions and di sposition.
--- NOTE | 2018-12-08 11:46 | CARD ---
APPROVED REPORT Date of service: 12/07/2018 EKG Measurement Heart [id number] NE 124P26 [id number] <Conclusion> Normal sinus rhythm Normal ECG
== END 2018-12-07 09:50 | disposition home or self-care (01) ==
LOC: C.ER 09:18
DX: J40 Bronchitis, not specified as acute or chronic (principal)